=== PATIENT | female | born 1975 | race Caucasian/White ===

== ENCOUNTER 2016-08-02 14:37 | Outpatient (CLI) | payer BC, MEDICAID ==
[2015-09-19 16:23] VITALS: BP 108/72
[2016-08-02 14:59] LABS: APPEARANCE,URINE Clear (CLEAR); COLOR,URINE Amber (YELLOW); OCCULT BLOOD,URINE Negative (NEGATIVE); UROBILINOGEN URINE 0.2 Eu (0.2-1.0)
== END 2016-08-02 14:45 ==
LOC: LAB 14:37
PROVIDERS: ATTEND Internal Medicine Hematology & Oncology
DX: Z51.81 Encounter for therapeutic drug level monitoring (principal); Z79.01 Long term (current) use of anticoagulants; D68.61 Antiphospholipid syndrome
CPT/HCPCS: 36415; 81002; 85610

== ENCOUNTER 2016-08-26 13:44 | Outpatient (CLI) | payer BC, MEDICAID ==
[2015-09-19 16:23] VITALS: BP 108/72
== END 2016-08-26 13:45 ==
LOC: LAB 13:44
PROVIDERS: ATTEND Internal Medicine Hematology & Oncology
DX: D68.51 Activated protein C resistance (principal)
CPT/HCPCS: 36415; 85610

== ENCOUNTER 2016-10-15 10:53 | Emergency (ER) | payer BC, MEDICAID ==
--- NOTE | 2016-10-15 11:26 | ED Physician Documentation ---
General Adult - HISTORIAN Historian: patient - HPI Stated Complaint: Fever, Headaches, Neck Pain Chief Complaint: Fever Additional Information: 41 y/o F presents with acute illness. Starting Friday patient and her daughter both had 'high fevers' (102.9 by oral thermometer) , HAs, and general malaise. Yesterday, felt like the back of her neck was more painful. She's also diaphoretic and felt like her lymph nodes were enlarged. Also has fullness in ears and sinuses. Feels dizzy because of ear fullness. She has taken Vicodin but has not relieved headache. Tolerating some limited po but has decreased food intake. Has been vomiting with increase from baseline, nonbilious and non bloody. Denies diarrhea or rash. Compares her illness to when she had mono. Did not get a flu shot this year. Dad has walking pneumonia. Patient has a port for gastroparesis. - ROS CONST: fever, sweating, recent illness - PAST HX Past History: other (Hypothyroidism, FMS, IBS, B12 deficiency, HTN, Gastroparesis ) Allergies/Adverse Reactions: Allergies Allergy/AdvReac Type Severity Reaction Status Date / Time Iodinated Contrast Media - Allergy Verified 10/15/16 11:15 IV Dye Penicillins Allergy Verified 10/15/16 11:15 sulfamethoxazole Allergy Verified 10/15/16 11:15 [From Bactrim DS] trimethoprim Allergy Verified 10/15/16 11:15 [From Bactrim DS] Home Medications: Ambulatory Orders Medication Instructions Recorded Butalb/Acetaminophen/Caffeine 1 tab PO DAILY 11/26/12 [[id number] 50-325-40] Ondansetron HCl 4 mg PO Q6H PRN 11/26/12 Warfarin Sodium [Coumadin] 6 mg PO DAILY 11/26/12 LORazepam [Ativan] 0.5 mg PO BID #0 04/06/14 Metoprolol Succinate 50 mg PO DAILY #0 04/06/14 Chlordiazepoxide/Clidinium Br 1 each PO 2 tabs QID av 12/14/15 [Librax Capsule] Hydrocodone/Acetaminophen [Vicodin 1 each PO PRN u2 12/14/15 Es 7.5-300 Mg Tablet] - SOCIAL HX Smoking History: other (2 cigarettes/day) Alcohol Use: none Drug Use: none - FAMILY HX Family History: No - VITAL SIGNS Vital Signs: Vital Signs Temp Pulse Resp BP Pulse Ox 98.7 F 107 H 20 153/88 99 10/15/16 10:55 10/15/16 10:55 10/15/16 10:55 10/15/16 10:55 10/15/16 10:55 Progress - Results/Orders Results/Orders: 12:10 Orthostatics were positive and patient was reporting increase in nausea. Started 1 L NS bolus and gave Zofran. - Progress Progress: 12:45 Labs returned as normal and Influenza negative. Patient feeling better with NS and Zofran. 13:38 Patient states that she is still nauseated some but feeling better then on admission. General Adult Physical Exam - PHYSICAL EXAM GENERAL APPEARANCE: no distress EENT: eye inspection normal, TM's nml. No: hearing deficit NECK: normal inspection, thyroid normal. No: lymphadenopathy, stiff neck RESPIRATORY: no resp distress, chest non-tender, breath sounds normal CVS: heart sounds normal, tachycardia ABDOMEN: soft, normal bowel sounds SKIN: warm/dry NEURO: oriented X3, sensation nml Discharge Clincal Impression: Viral syndrome, Gastroparesis Referrals: Adriel Alberts MD [Primary Care Provider] - 2 Days Additional Instructions: Small frequent meals - clear liquids until vomiting has improved. If any further problems, contact PCP or return to ED. Home Medications: Ambulatory Orders Butalb/Acetaminophen/Caffeine [Ldbmkj-Zgpcyylz-Zmmg 50-325-40] 1 tab PO DAILY Ondansetron HCl 4 mg PO Q6H PRN 11/26/12 Warfarin Sodium [Coumadin] 6 mg PO DAILY 11/26/12 LORazepam [Ativan] 0.5 mg PO BID #0 04/06/14 Metoprolol Succinate 50 mg PO DAILY #0 04/06/14 Chlordiazepoxide/Clidinium Br [Librax Capsule] 1 each PO 2 tabs QID av Hydrocodone/Acetaminophen [Vicodin Es 7.5-300 Mg Tablet] 1 each PO PRN u2 12/13 Condition: Stable Decision to Admit: NO Date of Decison to Admit: 10/15/16 Decision Time: 13:34
[2016-10-15 12:06] LABS: BASOPHILS % 0.5 (0.0-1.5); EOSINOPHILS % 1.7 % (0.0-6.8); MONOCYTES # 0.4 # k/uL (0.0-0.9); MONOCYTES % 5.5 % (0.0-11.0); NEUTROPHILS # 4.8 # k/uL (1.4-7.7)
[2016-10-15] MEDS ORDERED: ONDANSETRON HCL/PF 4 MG/ 2ML VIAL ONE (12:08)
[2016-10-15] MEDS ORDERED: 0.9 % SODIUM CHLORIDE 1,000 ML IV ONE (12:08)
[2016-10-15] MEDS: 0.9 % SODIUM CHLORIDE 1,000 ML IV SCH (12:10)
[2016-10-15] MEDS: ONDANSETRON HCL/PF 4 MG/ 2ML VIAL IVP ONE ×2 (12:10→13:45)
[2016-10-15 12:31] LABS: eGFR (African) > 60; eGFR (Non-African) > 60
[2016-10-15 13:55] VITALS: BP 130/68
== END 2016-10-15 13:52 ==
LOC: ED 10:53
DX: K31.84 Gastroparesis (principal)
CPT/HCPCS: 80053; 85025; 85610; 87400; J2405; J7030; 96361; 96374; 99283

== ENCOUNTER 2016-12-18 15:08 | Outpatient (CLI) | payer BC ==
[~2016-12-18 15:08] MED LIST: 0.9 % SODIUM CHLORIDE 50 ML IV.SOLN IV ONE; HEPARIN SODIUM 500 UNIT/5 ML DISP.SYRIN IV ONE; ONDANSETRON HCL/PF 4 MG/ 2ML VIAL ONE; SALINE FLUSH 10 ML DISP.SYRIN IVF ONE; cefTRIAXone SODIUM 1 GM VIAL ONE
[2016-12-18] MEDS ORDERED: ONDANSETRON HCL/PF 4 MG/ 2ML VIAL IVP ONE (16:00)
[2016-12-19] MEDS ORDERED: cefTRIAXone SODIUM 1 GM in 0.9 % SODIUM CHLORIDE 50 ML IV SCH (09:00)
== END 2016-12-18 15:10 ==
LOC: INF 15:08
PROVIDERS: ATTEND Family Medicine
DX: J40 Bronchitis, not specified as acute or chronic (principal); J01.90 Acute sinusitis, unspecified; D68.51 Activated protein C resistance
CPT/HCPCS: 36415; 85610; J0696; J1642; J2405; 96365

== ENCOUNTER 2016-12-19 13:26 | Outpatient (CLI) | payer BC, MEDICAID ==
[2016-12-19] MEDS ORDERED: ONDANSETRON HCL/PF 4 MG/ 2ML VIAL ONE (13:30)
[2016-12-19] MEDS ORDERED: 0.9 % SODIUM CHLORIDE 50 ML IV.SOLN IV ONE (13:30)
[2016-12-19] MEDS ORDERED: cefTRIAXone SODIUM 1 GM VIAL ONE (13:30)
[2016-12-19] MEDS ORDERED: HEPARIN SODIUM 500 UNIT/5 ML DISP.SYRIN IV ONE (13:30)
[2016-12-19] MEDS ORDERED: SALINE FLUSH 10 ML DISP.SYRIN IVF ONE (13:30)
[2016-12-19 14:05] LABS: BASOPHILS % 0.7 (0.0-1.5); EOSINOPHILS % 2.6 % (0.0-6.8); MEAN CORPUSCULAR HEMOGLOBIN 33.5 pg (28.0-34.0); MEAN CORPUSCULAR VOLUME 90.5 fl (80.0-100.0); MONOCYTES % 3.6 % (0.0-11.0); NEUTROPHILS # 7.2 # k/uL (1.4-7.7)
[2016-12-19 14:49] LABS: eGFR (African) > 60; eGFR (Non-African) > 60
[2016-12-20 01:41] LABS: VITAMIN D, 25-HYDROXY <5 ng/mL (30-100)
== END 2016-12-19 13:27 ==
LOC: INF 13:26
PROVIDERS: ATTEND Family Medicine
DX: J40 Bronchitis, not specified as acute or chronic (principal); J01.90 Acute sinusitis, unspecified; D68.51 Activated protein C resistance
CPT/HCPCS: 80053; 82306; 82607; 82728; 83615; 83921; 84443; 85025; J0696; J1642; J2405; 96365

== ENCOUNTER 2016-12-20 13:05 | Outpatient (CLI) | payer BC, MEDICAID ==
[~2016-12-20 13:05] MED LIST changes: +ONDANSETRON HCL/PF 4 MG/ 2ML VIAL IVP ONE; +cefTRIAXone SODIUM 1 GM in 0.9 % SODIUM CHLORIDE 50 ML IV SCH
== END 2016-12-20 13:06 ==
LOC: INF 13:05
PROVIDERS: ATTEND Family Medicine
DX: J40 Bronchitis, not specified as acute or chronic (principal); J01.90 Acute sinusitis, unspecified; D68.51 Activated protein C resistance
CPT/HCPCS: J0696; J1642; J2405; 96365

== ENCOUNTER 2016-12-21 13:54 | Outpatient (CLI) | payer BC, MEDICAID ==
[~2016-12-21 13:54] MED LIST changes: -ONDANSETRON HCL/PF 4 MG/ 2ML VIAL IVP ONE; +ONDANSETRON HCL/PF 4 MG/ 2ML VIAL IVP SCH
== END 2016-12-21 13:55 ==
LOC: INF 13:54
PROVIDERS: ATTEND Family Medicine
DX: J40 Bronchitis, not specified as acute or chronic (principal); J01.90 Acute sinusitis, unspecified; D68.51 Activated protein C resistance
CPT/HCPCS: J0696; J1642; J2405; 96365

== ENCOUNTER 2016-12-22 14:24 | Outpatient (CLI) | payer BC, MEDICAID | END 2016-12-22 14:25 | LOC: INF 14:24 | PROVIDERS: ATTEND Family Medicine | DX: J40 Bronchitis, not specified as acute or chronic (principal); J01.90 Acute sinusitis, unspecified; D68.51 Activated protein C resistance | CPT/HCPCS: J0696; J1642; J2405; 96365 ==

== ENCOUNTER 2016-12-30 11:30 | Outpatient (CLI) | payer BC, MEDICAID | END 2016-12-30 11:32 | LOC: LAB 11:30 | PROVIDERS: ATTEND Internal Medicine Hematology & Oncology | DX: D68.51 Activated protein C resistance (principal) | CPT/HCPCS: 36415; 85610 ==

== ENCOUNTER 2017-04-28 11:39 | Outpatient (CLI) | payer BC, OTHER ==
[2017-04-28 12:12] LABS: APPEARANCE,URINE Cloudy (CLEAR); COLOR,URINE Yellow (YELLOW); OCCULT BLOOD,URINE 1+ (NEGATIVE); UROBILINOGEN URINE 0.2 Eu (0.2-1.0)
[2017-04-28 12:19] LABS: AMORPHOUS SEDIMENT,UR FEW (NEGATIVE)
== END 2017-04-28 11:40 ==
LOC: LAB 11:39
PROVIDERS: ATTEND Family Medicine
DX: R30.0 Dysuria (principal)
CPT/HCPCS: 81002; 87086

== ENCOUNTER 2017-04-30 13:15 | Outpatient (CLI) | payer BC, OTHER ==
[2017-04-30] MEDS ORDERED: cefTRIAXone SODIUM 1 GM VIAL ONE (14:00)
[2017-04-30] MEDS ORDERED: SALINE FLUSH 10 ML DISP.SYRIN IVF ONE (14:00)
[2017-04-30] MEDS ORDERED: HEPARIN SODIUM 500 UNIT/5 ML DISP.SYRIN IV ONE (14:00)
[2017-04-30] MEDS ORDERED: 0.9 % SODIUM CHLORIDE 50 ML IV.SOLN IV ONE (14:00)
[2017-04-30] MEDS ORDERED: ONDANSETRON HCL/PF 4 MG/ 2ML VIAL ONE (14:00)
[2017-05-01] MEDS ORDERED: cefTRIAXone SODIUM 1 GM in 0.9 % SODIUM CHLORIDE 50 ML IV SCH (09:00)
[2017-05-01] MEDS ORDERED: SALINE FLUSH 10 ML DISP.SYRIN IVF ONE (12:31)
[2017-05-01] MEDS ORDERED: ONDANSETRON HCL/PF 4 MG/ 2ML VIAL ONE (12:31)
== END 2017-04-30 13:16 ==
LOC: INF 13:15
PROVIDERS: ATTEND Family Medicine
DX: N39.0 Urinary tract infection, site not specified (principal); K31.84 Gastroparesis
CPT/HCPCS: 96366; 96367; 96374; J0696; J1642; J2405; 96376

== ENCOUNTER 2017-05-01 12:58 | Outpatient (CLI) | payer BC, OTHER ==
[2017-05-01] MEDS ORDERED: HEPARIN SODIUM 500 UNIT/5 ML DISP.SYRIN IV ONE (13:00)
[2017-05-01] MEDS ORDERED: cefTRIAXone SODIUM 1 GM VIAL ONE (13:00)
[2017-05-01] MEDS ORDERED: SALINE FLUSH 10 ML DISP.SYRIN IVF ONE (13:00)
[2017-05-01] MEDS ORDERED: ONDANSETRON HCL/PF 4 MG/ 2ML VIAL ONE (13:00)
[2017-05-01] MEDS ORDERED: 0.9 % SODIUM CHLORIDE 50 ML IV.SOLN IV ONE (13:00)
[2017-05-02] MEDS ORDERED: ONDANSETRON HCL/PF 4 MG/ 2ML VIAL ONE (08:36)
[2017-05-02] MEDS ORDERED: SALINE FLUSH 10 ML DISP.SYRIN IVF ONE (08:38)
== END 2017-05-01 13:00 ==
LOC: INF 12:58
PROVIDERS: ATTEND Family Medicine
DX: N39.0 Urinary tract infection, site not specified (principal); K31.84 Gastroparesis
CPT/HCPCS: 96366; 96367; 96374; J0696; J1642; J2405; 96376

== ENCOUNTER 2017-05-02 12:11 | Outpatient (CLI) | payer BC, OTHER ==
[~2017-05-02 12:11] MED LIST changes: -0.9 % SODIUM CHLORIDE 50 ML IV.SOLN IV ONE; -HEPARIN SODIUM 500 UNIT/5 ML DISP.SYRIN IV ONE; -ONDANSETRON HCL/PF 4 MG/ 2ML VIAL IVP SCH; -ONDANSETRON HCL/PF 4 MG/ 2ML VIAL ONE; -SALINE FLUSH 10 ML DISP.SYRIN IVF ONE; -cefTRIAXone SODIUM 1 GM VIAL ONE
[2017-05-02] MEDS ORDERED: 0.9 % SODIUM CHLORIDE 50 ML IV.SOLN IV ONE (13:00)
[2017-05-02] MEDS ORDERED: HEPARIN SODIUM 500 UNIT/5 ML DISP.SYRIN IV ONE (13:00)
[2017-05-02] MEDS ORDERED: SALINE FLUSH 10 ML DISP.SYRIN IVF ONE (13:00)
[2017-05-02] MEDS ORDERED: ONDANSETRON HCL/PF 4 MG/ 2ML VIAL ONE (13:00)
[2017-05-02] MEDS ORDERED: cefTRIAXone SODIUM 1 GM VIAL ONE (13:00)
== END 2017-05-02 12:12 ==
LOC: INF 12:11
PROVIDERS: ATTEND Family Medicine
DX: N39.0 Urinary tract infection, site not specified (principal); K31.84 Gastroparesis; D68.51 Activated protein C resistance; J40 Bronchitis, not specified as acute or chronic; J01.90 Acute sinusitis, unspecified
CPT/HCPCS: 96366; 96367; 96374; J0696; J1642; J2405; 96376

== ENCOUNTER 2017-05-03 13:20 | Outpatient (CLI) | payer BC, OTHER ==
[~2017-05-03 13:20] MED LIST changes: +0.9 % SODIUM CHLORIDE 50 ML IV.SOLN IV ONE; +HEPARIN SODIUM 500 UNIT/5 ML DISP.SYRIN IV ONE; +ONDANSETRON HCL/PF 4 MG/ 2ML VIAL ONE; +SALINE FLUSH 10 ML DISP.SYRIN IVF ONE; +cefTRIAXone SODIUM 1 GM VIAL ONE; -cefTRIAXone SODIUM 1 GM in 0.9 % SODIUM CHLORIDE 50 ML IV SCH
== END 2017-05-03 13:21 ==
LOC: INF 13:20
PROVIDERS: ATTEND Family Medicine
DX: N39.0 Urinary tract infection, site not specified (principal); K31.84 Gastroparesis
CPT/HCPCS: 96366; 96367; 96374; J0696; J1642; J2405; 96376

== ENCOUNTER 2017-05-04 13:03 | Outpatient (CLI) | payer BC, OTHER | END 2017-05-04 13:04 | LOC: INF 13:03 | PROVIDERS: ATTEND Family Medicine | DX: N39.0 Urinary tract infection, site not specified (principal); K31.84 Gastroparesis | CPT/HCPCS: 96366; 96367; 96374; J0696; J1642; J2405; 96376 ==

== ENCOUNTER 2017-05-05 12:22 | Outpatient (CLI) | payer BC, OTHER ==
[2017-05-05] MEDS ORDERED: HEPARIN SODIUM 500 UNIT/5 ML DISP.SYRIN IV ONE (13:00)
[2017-05-05] MEDS ORDERED: SALINE FLUSH 10 ML DISP.SYRIN IVF ONE (13:00)
[2017-05-05] MEDS ORDERED: 0.9 % SODIUM CHLORIDE 50 ML IV.SOLN IV ONE (13:00)
[2017-05-05] MEDS ORDERED: ONDANSETRON HCL/PF 4 MG/ 2ML VIAL ONE (13:00)
[2017-05-05] MEDS ORDERED: cefTRIAXone SODIUM 1 GM VIAL ONE (13:00)
[2017-05-06] MEDS ORDERED: cefTRIAXone SODIUM 1 GM in 0.9 % SODIUM CHLORIDE 50 ML IV SCH (09:00)
== END 2017-05-05 12:23 ==
LOC: INF 12:22
PROVIDERS: ATTEND Family Medicine
DX: N39.0 Urinary tract infection, site not specified (principal); K31.84 Gastroparesis
CPT/HCPCS: 96366; 96367; 96374; J0696; J1642; J2405; 96376

== ENCOUNTER 2017-05-06 12:01 | Outpatient (CLI) | payer BC, OTHER ==
[~2017-05-06 12:01] MED LIST changes: -0.9 % SODIUM CHLORIDE 50 ML IV.SOLN IV ONE; -HEPARIN SODIUM 500 UNIT/5 ML DISP.SYRIN IV ONE; -cefTRIAXone SODIUM 1 GM VIAL ONE; +cefTRIAXone SODIUM 1 GM in 0.9 % SODIUM CHLORIDE 50 ML IV SCH
[2017-05-06] MEDS ORDERED: 0.9 % SODIUM CHLORIDE 50 ML IV.SOLN IV ONE (13:00)
[2017-05-06] MEDS ORDERED: cefTRIAXone SODIUM 1 GM VIAL ONE (13:00)
[2017-05-06] MEDS ORDERED: ONDANSETRON HCL/PF 4 MG/ 2ML VIAL ONE (13:00)
[2017-05-06] MEDS ORDERED: HEPARIN SODIUM 500 UNIT/5 ML DISP.SYRIN IV ONE (13:00)
[2017-05-06] MEDS ORDERED: SALINE FLUSH 10 ML DISP.SYRIN IVF ONE (13:00)
== END 2017-05-06 12:02 ==
LOC: INF 12:01
PROVIDERS: ATTEND Family Medicine
DX: N39.0 Urinary tract infection, site not specified (principal); K31.84 Gastroparesis
CPT/HCPCS: 96366; 96367; 96374; J0696; J1642; J2405; 96376

== ENCOUNTER 2017-05-21 13:48 | Outpatient (CLI) | payer BC, OTHER ==
[2017-05-21 14:14] LABS: APPEARANCE,URINE Cloudy (CLEAR); COLOR,URINE Yellow (YELLOW); OCCULT BLOOD,URINE 2+ (NEGATIVE); PH URINE 5.5 (5.0 - 8.0); UROBILINOGEN URINE 0.2 Eu (0.2-1.0)
[2017-05-23] MEDS ORDERED: SALINE FLUSH 10 ML DISP.SYRIN IVF ONE (08:02)
[2017-05-23] MEDS ORDERED: ONDANSETRON HCL/PF 4 MG/ 2ML VIAL ONE (08:06)
== END 2017-05-21 13:50 ==
LOC: LAB 13:48
PROVIDERS: ATTEND Internal Medicine Hematology & Oncology
DX: D68.51 Activated protein C resistance (principal)
CPT/HCPCS: 36415; 81002; 85610; 87086; 87186

== ENCOUNTER 2017-05-22 13:00 | Outpatient (CLI) | payer BC, OTHER ==
[~2017-05-22 13:00] MED LIST changes: +0.9 % SODIUM CHLORIDE 50 ML IV.SOLN IV ONE; -ONDANSETRON HCL/PF 4 MG/ 2ML VIAL ONE; +cefTRIAXone SODIUM 1 GM VIAL ONE
== END 2017-05-22 13:02 ==
LOC: INF 13:00
PROVIDERS: ATTEND Family Medicine
DX: N39.0 Urinary tract infection, site not specified (principal)
CPT/HCPCS: 96366; 96367; 96374; J0696; 96376; S1016

== ENCOUNTER 2017-05-23 10:12 | Outpatient (CLI) | payer BC, OTHER ==
[~2017-05-23 10:12] MED LIST changes: -0.9 % SODIUM CHLORIDE 50 ML IV.SOLN IV ONE; +ONDANSETRON HCL/PF 4 MG/ 2ML VIAL ONE; -SALINE FLUSH 10 ML DISP.SYRIN IVF ONE; -cefTRIAXone SODIUM 1 GM VIAL ONE; -cefTRIAXone SODIUM 1 GM in 0.9 % SODIUM CHLORIDE 50 ML IV SCH
[2017-05-23] MEDS ORDERED: ONDANSETRON HCL/PF 4 MG/ 2ML VIAL ONE (10:30)
[2017-05-23] MEDS ORDERED: HEPARIN SODIUM 500 UNIT/5 ML DISP.SYRIN IV ONE (10:30)
[2017-05-23] MEDS ORDERED: cefTRIAXone SODIUM 1 GM VIAL ONE (10:30)
[2017-05-23] MEDS ORDERED: 0.9 % SODIUM CHLORIDE 50 ML IV.SOLN IV ONE (10:30)
[2017-05-23] MEDS ORDERED: SALINE FLUSH 10 ML DISP.SYRIN IVF ONE (10:30)
== END 2017-05-23 10:30 ==
LOC: INF 10:12
PROVIDERS: ATTEND Family Medicine
DX: N39.0 Urinary tract infection, site not specified (principal)
CPT/HCPCS: 96366; 96367; 96374; J0696; J1642; J2405; 96376

== ENCOUNTER 2017-05-24 13:44 | Outpatient (CLI) | payer BC, OTHER ==
[~2017-05-24 13:44] MED LIST changes: +0.9 % SODIUM CHLORIDE PF 10 ML VIAL IJ SCH; +HEPARIN SODIUM 500 UNIT/5 ML DISP.SYRIN IV SCH; -ONDANSETRON HCL/PF 4 MG/ 2ML VIAL ONE; +cefTRIAXone SODIUM 1 GM in 0.9 % SODIUM CHLORIDE 50 ML IV SCH
[2017-05-24] MEDS ORDERED: ONDANSETRON HCL/PF 4 MG/ 2ML VIAL ONE ×2 (13:57→14:00)
[2017-05-24] MEDS ORDERED: SALINE FLUSH 10 ML DISP.SYRIN IVF ONE ×2 (13:58→14:00)
[2017-05-24] MEDS ORDERED: 0.9 % SODIUM CHLORIDE 50 ML IV.SOLN IV ONE (14:00)
[2017-05-24] MEDS ORDERED: HEPARIN SODIUM 500 UNIT/5 ML DISP.SYRIN IV ONE (14:00)
[2017-05-24] MEDS ORDERED: cefTRIAXone SODIUM 1 GM VIAL ONE (14:00)
== END 2017-05-24 13:45 ==
LOC: INF 13:44
PROVIDERS: ATTEND Family Medicine
DX: N39.0 Urinary tract infection, site not specified (principal)
CPT/HCPCS: 96366; 96367; 96374; J0696; J1642; J2405; 96376

== ENCOUNTER 2017-05-25 13:50 | Outpatient (CLI) | payer BC, OTHER ==
[2017-05-25] MEDS ORDERED: cefTRIAXone SODIUM 1 GM VIAL ONE (14:00)
[2017-05-25] MEDS ORDERED: ONDANSETRON HCL/PF 4 MG/ 2ML VIAL ONE (14:00)
[2017-05-25] MEDS ORDERED: HEPARIN SODIUM 500 UNIT/5 ML DISP.SYRIN IV ONE (14:00)
[2017-05-25] MEDS ORDERED: SALINE FLUSH 10 ML DISP.SYRIN IVF ONE (14:00)
[2017-05-25] MEDS ORDERED: 0.9 % SODIUM CHLORIDE 50 ML IV.SOLN IV ONE (14:00)
[2017-05-26] MEDS ORDERED: SALINE FLUSH 10 ML DISP.SYRIN IVF ONE (07:46)
[2017-05-26] MEDS ORDERED: ONDANSETRON HCL/PF 4 MG/ 2ML VIAL ONE (07:47)
== END 2017-05-25 13:52 ==
LOC: INF 13:50
PROVIDERS: ATTEND Family Medicine
DX: N39.0 Urinary tract infection, site not specified (principal)
CPT/HCPCS: 96366; 96367; 96374; J0696; J1642; J2405; 96376

== ENCOUNTER 2017-05-26 11:27 | Outpatient (CLI) | payer BC, OTHER ==
[~2017-05-26 11:27] MED LIST changes: -0.9 % SODIUM CHLORIDE PF 10 ML VIAL IJ SCH; -HEPARIN SODIUM 500 UNIT/5 ML DISP.SYRIN IV SCH; +HEPARIN SODIUM,PORCINE 30 UNITS INJ IV ONE; +ONDANSETRON HCL/PF 4 MG/ 2ML VIAL ONE; +SALINE FLUSH 10 ML DISP.SYRIN IVF ONE; -cefTRIAXone SODIUM 1 GM in 0.9 % SODIUM CHLORIDE 50 ML IV SCH
[2017-05-26] MEDS ORDERED: cefTRIAXone SODIUM 1 GM in 0.9 % SODIUM CHLORIDE 50 ML IV SCH (12:00)
[2017-05-26] MEDS ORDERED: SALINE FLUSH 10 ML DISP.SYRIN IVF ONE (12:00)
[2017-05-26] MEDS ORDERED: cefTRIAXone SODIUM 1 GM VIAL ONE (12:00)
[2017-05-26] MEDS ORDERED: ONDANSETRON HCL/PF 4 MG/ 2ML VIAL ONE (12:00)
[2017-05-26] MEDS ORDERED: HEPARIN SODIUM 500 UNIT/5 ML DISP.SYRIN IV ONE (12:00)
[2017-05-26] MEDS ORDERED: 0.9 % SODIUM CHLORIDE 50 ML IV.SOLN IV ONE (12:00)
[2017-05-27] MEDS ORDERED: SALINE FLUSH 10 ML DISP.SYRIN IVF ONE (08:10)
[2017-05-27] MEDS ORDERED: ONDANSETRON HCL/PF 4 MG/ 2ML VIAL ONE (08:10)
[2017-05-28] MEDS ORDERED: ONDANSETRON HCL/PF 4 MG/ 2ML VIAL ONE (07:22)
[2017-05-28] MEDS ORDERED: SALINE FLUSH 10 ML DISP.SYRIN IVF ONE (07:22)
== END 2017-05-26 11:30 ==
LOC: INF 11:27
PROVIDERS: ATTEND Family Medicine
DX: N39.0 Urinary tract infection, site not specified (principal)
CPT/HCPCS: J0696; J1642; J2405; 96366; 96374; 96376

== ENCOUNTER 2017-05-27 10:39 | Outpatient (CLI) | payer BC, OTHER ==
[2017-05-27] MEDS ORDERED: HEPARIN SODIUM 500 UNIT/5 ML DISP.SYRIN IV ONE (12:00)
[2017-05-27] MEDS ORDERED: SALINE FLUSH 10 ML DISP.SYRIN IVF ONE (12:00)
[2017-05-27] MEDS ORDERED: cefTRIAXone SODIUM 1 GM VIAL ONE (12:00)
[2017-05-27] MEDS ORDERED: 0.9 % SODIUM CHLORIDE 50 ML IV.SOLN IV ONE (12:00)
[2017-05-27] MEDS ORDERED: ONDANSETRON HCL/PF 4 MG/ 2ML VIAL ONE (12:00)
== END 2017-05-27 10:40 ==
LOC: INF 10:39
PROVIDERS: ATTEND Family Medicine
DX: N39.0 Urinary tract infection, site not specified (principal)
CPT/HCPCS: J0696; J1642; J2405; 96365; 96374; 96376

== ENCOUNTER 2017-05-28 12:00 | Outpatient (CLI) | payer BC, OTHER ==
[~2017-05-28 12:00] MED LIST changes: +0.9 % SODIUM CHLORIDE 50 ML IV.SOLN IV ONE; +HEPARIN SODIUM 500 UNIT/5 ML DISP.SYRIN IV ONE; -HEPARIN SODIUM,PORCINE 30 UNITS INJ IV ONE; +cefTRIAXone SODIUM 1 GM VIAL ONE
== END 2017-05-28 12:02 ==
LOC: INF 12:00
PROVIDERS: ATTEND Family Medicine
DX: N39.0 Urinary tract infection, site not specified (principal)
CPT/HCPCS: J0696; J1642; J2405; 96365; 96374; 96376

== ENCOUNTER 2017-07-03 06:56 | Day surgery (SDC) | payer BC, OTHER ==
[2017-07-03] MEDS ORDERED: PROPOFOL 500 MG/50 ML VIAL IV ONE (08:00)
[2017-07-03] MEDS ORDERED: LIDOCAINE 1%/EPINEPHRINE 20ML VIAL IJ ONE (08:00)
[2017-07-03] MEDS ORDERED: LACTATED RINGERS 1,000 ML IV.SOLN IV ONE (08:00)
[2017-07-03] MEDS ORDERED: ONDANSETRON HCL/PF 4 MG/ 2ML VIAL ONE (08:00)
[2017-07-03] MEDS ORDERED: SALINE FLUSH 10 ML DISP.SYRIN IVF ONE (08:00)
[2017-07-03] MEDS ORDERED: BUPIVACAINE HCL/PF 2.5 MG/ML 10ML VIAL IV ONE (08:00)
[2017-07-03] MEDS ORDERED: LIDOCAINE HCL/PF 2% 100 MG/5 ML VIAL IJ ONE (08:00)
--- NOTE | 2017-07-03 13:58 | Operative Note ---
SURGEON: Júnior Pruett MD ANESTHESIA: MAC anesthesia with local. ESTIMATED BLOOD LOSS: None. COMPLICATIONS: None. PREOPERATIVE DIAGNOSIS: Mediport malfunction. POSTOPERATIVE DIAGNOSIS: Mediport malfunction. PROCEDURE PERFORMED: Revision of Mediport. INDICATIONS FOR THE PROCEDURE: This is a 42-year-old woman with a Port-A-Cath that has been in place for years. It has been flipping over and not able to be accessed. It functions well otherwise. She is now brought to the operating room to try to reposition and tack the port. DESCRIPTION OF PROCEDURE: Patient was brought to the operating room and MAC anesthesia was administered by the program writer. The left upper chest was prepped and draped. Local anesthesia was injected in the old incision. A small incision was made and carried down through the subcutaneous tissues. The port was seen. It was in position but not tacked down. It was tacked down with a 3-0 nylon suture. There were no other abnormalities. There is no evidence of infection. The skin was closed with running 3-0 Vicryl sutures. A Steri-Strip dressing was placed over the incision. The patient was taken to the recovery room in good condition. FINDINGS: Port was in the right position but it was not tacked down to the chest wall. cc: Dr. Adriel CORRIGAN
== END 2017-07-03 06:57 ==
LOC: OPSURG 06:56
PROVIDERS: ATTEND Colon & Rectal Surgery
DX: T82.598A Other mechanical complication of other cardiac and vascular devices and implants, initial encounter (principal); X58.XXXA Exposure to other specified factors, initial encounter
CPT/HCPCS: 36415; 85610; J2001; J2405; J2704; J3490; J7030; J7120; 36576; 36582; S1016

== ENCOUNTER 2017-07-08 11:53 | Outpatient (CLI) | payer BC, OTHER | END 2017-07-08 11:58 | LOC: LAB 11:53 | PROVIDERS: ATTEND Internal Medicine Hematology & Oncology | DX: D68.51 Activated protein C resistance (principal) | CPT/HCPCS: 36415; 85610 ==

== ENCOUNTER 2017-07-11 12:02 | Outpatient (CLI) | payer BC, OTHER | END 2017-07-11 12:05 | LOC: LAB 12:02 | PROVIDERS: ATTEND Internal Medicine Hematology & Oncology | DX: D68.51 Activated protein C resistance (principal) | CPT/HCPCS: 36415; 85610 ==

== ENCOUNTER 2017-09-22 10:51 | Outpatient (CLI) | payer OTHER | END 2017-09-22 10:52 | LOC: LAB 10:51 | PROVIDERS: ATTEND Internal Medicine Hematology & Oncology | DX: D68.51 Activated protein C resistance (principal) | CPT/HCPCS: 36415; 85610 ==

== ENCOUNTER 2017-10-06 15:46 | Outpatient (CLI) | payer BC, MEDICAID ==
[2017-10-06 15:54] LABS: APPEARANCE,URINE Cloudy (CLEAR); COLOR,URINE Yellow (YELLOW); OCCULT BLOOD,URINE Trace-intact (NEGATIVE); UROBILINOGEN URINE 0.2 Eu (0.2-1.0)
== END 2017-10-06 16:00 ==
LOC: LAB 15:46
PROVIDERS: ATTEND Family Medicine
DX: N39.0 Urinary tract infection, site not specified (principal)
CPT/HCPCS: 81002; 87086

== ENCOUNTER 2017-10-09 17:29 | Outpatient (CLI) | payer OTHER ==
[~2017-10-09 17:29] MED LIST changes: -0.9 % SODIUM CHLORIDE 50 ML IV.SOLN IV ONE; -HEPARIN SODIUM 500 UNIT/5 ML DISP.SYRIN IV ONE; -SALINE FLUSH 10 ML DISP.SYRIN IVF ONE
[2017-10-09] MEDS ORDERED: SALINE FLUSH 10 ML DISP.SYRIN IVF ONE (17:30)
[2017-10-09] MEDS ORDERED: 0.9 % SODIUM CHLORIDE 100 ML IV.SOLN IV ONE (17:30)
[2017-10-09] MEDS ORDERED: HEPARIN SODIUM 500 UNIT/5 ML DISP.SYRIN IV ONE (17:30)
[2017-10-09] MEDS ORDERED: cefTRIAXone SODIUM 1 GM VIAL ONE (17:30)
[2017-10-09] MEDS ORDERED: ONDANSETRON HCL/PF 4 MG/ 2ML VIAL ONE (17:30)
[2017-10-10] MEDS ORDERED: cefTRIAXone SODIUM 1 GM in 0.9 % SODIUM CHLORIDE 100 ML IV SCH (11:00)
== END 2017-10-09 18:30 | disposition home or self-care (01) ==
LOC: INF 17:29
PROVIDERS: ATTEND Family Medicine
DX: N39.0 Urinary tract infection, site not specified (principal)
CPT/HCPCS: 96365; 96375; J1642; J2405; J0696

== ENCOUNTER 2017-10-10 11:20 | Outpatient (CLI) | payer OTHER ==
[2017-10-10] MEDS ORDERED: ONDANSETRON HCL/PF 4 MG/ 2ML VIAL ONE ×2 (11:27→11:30)
[2017-10-10] MEDS ORDERED: cefTRIAXone SODIUM 1 GM VIAL ONE (11:30)
[2017-10-10] MEDS ORDERED: SALINE FLUSH 10 ML DISP.SYRIN IVF ONE (11:30)
[2017-10-10] MEDS ORDERED: HEPARIN SODIUM 500 UNIT/5 ML DISP.SYRIN IV ONE (11:30)
[2017-10-10] MEDS ORDERED: 0.9 % SODIUM CHLORIDE 100 ML IV.SOLN IV ONE (11:30)
== END 2017-10-10 11:30 ==
LOC: INF 11:20
PROVIDERS: ATTEND Family Medicine
DX: N39.0 Urinary tract infection, site not specified (principal)
CPT/HCPCS: 96365; 96375; J0696; J1642; J2405

== ENCOUNTER 2017-10-11 13:13 | Outpatient (CLI) | payer OTHER ==
[2017-10-11] MEDS ORDERED: cefTRIAXone SODIUM 1 GM VIAL ONE (13:30)
[2017-10-11] MEDS ORDERED: SALINE FLUSH 10 ML DISP.SYRIN IVF ONE (13:30)
[2017-10-11] MEDS ORDERED: ONDANSETRON HCL/PF 4 MG/ 2ML VIAL ONE (13:30)
[2017-10-11] MEDS ORDERED: HEPARIN SODIUM 500 UNIT/5 ML DISP.SYRIN IV ONE (13:30)
[2017-10-11] MEDS ORDERED: 0.9 % SODIUM CHLORIDE 100 ML IV.SOLN IV ONE (13:30)
== END 2017-10-11 14:00 ==
LOC: INF 13:13
PROVIDERS: ATTEND Family Medicine
DX: N39.0 Urinary tract infection, site not specified (principal)
CPT/HCPCS: 96365; 96375; J0696; J1642; J2405

== ENCOUNTER 2017-10-12 11:00 | Outpatient (CLI) | payer OTHER ==
[2017-10-12] MEDS ORDERED: cefTRIAXone SODIUM 1 GM VIAL ONE (13:15)
[2017-10-12] MEDS ORDERED: ONDANSETRON HCL/PF 4 MG/ 2ML VIAL ONE (13:15)
[2017-10-12] MEDS ORDERED: 0.9 % SODIUM CHLORIDE 100 ML IV.SOLN IV ONE (13:15)
[2017-10-12] MEDS ORDERED: SALINE FLUSH 10 ML DISP.SYRIN IVF ONE (13:15)
[2017-10-12] MEDS ORDERED: HEPARIN SODIUM 500 UNIT/5 ML DISP.SYRIN IV ONE (13:15)
== END 2017-10-12 14:20 | disposition home or self-care (01) ==
LOC: INF 11:00
PROVIDERS: ATTEND Family Medicine
DX: N39.0 Urinary tract infection, site not specified (principal)
CPT/HCPCS: 96365; 96375; J0696; J1642; J2405

== ENCOUNTER 2017-10-13 09:22 | Outpatient (CLI) | payer OTHER ==
[~2017-10-13 09:22] MED LIST changes: +0.9 % SODIUM CHLORIDE 250 ML IV ONE
[2017-10-13] MEDS ORDERED: ONDANSETRON HCL/PF 4 MG/ 2ML VIAL ONE ×2 (09:28→09:30)
[2017-10-13] MEDS ORDERED: HEPARIN SODIUM 500 UNIT/5 ML DISP.SYRIN IV ONE (09:30)
[2017-10-13] MEDS ORDERED: cefTRIAXone SODIUM 1 GM VIAL ONE (09:30)
[2017-10-13] MEDS ORDERED: SALINE FLUSH 10 ML DISP.SYRIN IVF ONE (09:30)
[2017-10-13] MEDS ORDERED: 0.9 % SODIUM CHLORIDE 100 ML IV.SOLN IV ONE (09:30)
== END 2017-10-13 09:23 ==
LOC: INF 09:22
PROVIDERS: ATTEND Family Medicine
DX: N39.0 Urinary tract infection, site not specified (principal)
CPT/HCPCS: 96365; 96375; J0696; J1642; J2405; J7050

== ENCOUNTER 2017-10-14 10:47 | Outpatient (CLI) | payer OTHER ==
[2017-10-14] MEDS ORDERED: SALINE FLUSH 10 ML DISP.SYRIN IVF ONE (11:00)
[2017-10-14] MEDS ORDERED: ONDANSETRON HCL/PF 4 MG/ 2ML VIAL ONE ×2 (11:00→11:07)
[2017-10-14] MEDS ORDERED: HEPARIN SODIUM 500 UNIT/5 ML DISP.SYRIN IV ONE (11:00)
[2017-10-14] MEDS ORDERED: 0.9 % SODIUM CHLORIDE 100 ML IV.SOLN IV ONE (11:00)
[2017-10-14] MEDS ORDERED: cefTRIAXone SODIUM 1 GM VIAL ONE (11:00)
== END 2017-10-14 10:50 ==
LOC: INF 10:47
PROVIDERS: ATTEND Family Medicine
DX: N39.0 Urinary tract infection, site not specified (principal)
CPT/HCPCS: 96365; 96375; J0696; J1642; J2405

== ENCOUNTER 2017-10-15 11:40 | Outpatient (CLI) | payer OTHER ==
[2017-10-15] MEDS ORDERED: SALINE FLUSH 10 ML DISP.SYRIN IVF ONE (11:44)
[2017-10-15] MEDS ORDERED: ONDANSETRON HCL/PF 4 MG/ 2ML VIAL ONE (11:44)
[2017-10-15] MEDS ORDERED: cefTRIAXone SODIUM 1 GM VIAL ONE (11:44)
[2017-10-15] MEDS ORDERED: 0.9 % SODIUM CHLORIDE 100 ML IV.SOLN IV ONE (11:44)
[2017-10-15] MEDS ORDERED: HEPARIN SODIUM 500 UNIT/5 ML DISP.SYRIN IV ONE (11:44)
== END 2017-10-15 11:42 ==
LOC: INF 11:40
PROVIDERS: ATTEND Family Medicine
DX: N39.0 Urinary tract infection, site not specified (principal)
CPT/HCPCS: J0696; J1642; J2405; 96365; 96375

== ENCOUNTER 2017-12-20 10:44 | Emergency (ER) | payer OTHER ==
[2017-12-20 11:23] LABS: BASOPHILS % 0.5 (0.0-1.5); EOSINOPHILS % 3.9 % (0.0-6.8); MEAN CORPUSCULAR HEMOGLOBIN 31.6 pg (28.0-34.0); MEAN CORPUSCULAR VOLUME 91.7 fl (80.0-100.0); MONOCYTES % 3.1 % (0.0-11.0); NEUTROPHILS # 5.4 # k/uL (1.4-7.7)
--- NOTE | 2017-12-20 11:24 | ED Physician Documentation ---
General Adult - HISTORIAN Historian: patient - HPI Stated Complaint: Pain with Urination Chief Complaint: General Adult Additional Information: 2 days dysuria and frequency. No fever. Has 4-5 UTI's per year. This would be 3rd for 2018. Wants IV abx, as she has gastroparesis and malabsorption. - ROS CONST: denies: fever - PAST HX Past History: other (above, plus Vit D deficiency with chronic pain. Factor V Leiden) Allergies/Adverse Reactions: Allergies Allergy/AdvReac Type Severity Reaction Status Date / Time benzoyl peroxide Allergy Verified 10/15/17 14:19 Iodinated Contrast- Oral and Allergy Verified 10/15/16 11:15 IV Dye Penicillins Allergy Verified 10/15/16 11:15 sulfamethoxazole Allergy Verified 10/15/16 11:15 [From Bactrim DS] trimethoprim Allergy Verified 10/15/16 11:15 [From Bactrim DS] Home Medications: Ambulatory Orders Medication Instructions Recorded Warfarin Sodium [Coumadin] 6 mg PO DAILY 11/26/12 Hydrocodone/Acetaminophen [Vicodin 1 each PO PRN PRN u2 12/14/15 Es 7.5-300 Mg Tablet] Hyoscyamine Sulfate [Levsin] 0.125 mg PO QID 10/15/17 LORazepam [Ativan] 0.5 mg PO BID PRN 10/15/17 Prochlorperazine Maleate 10 mg PO PRN PRN 10/15/17 [Compazine] Butalb/Acetaminophen/Caffeine 12/20/17 [Esgic] Levothyroxine Sodium [Synthroid] 25 mcg PO 0700 12/20/17 Tramadol HCl [Ultram] 12/20/17 - SOCIAL HX Smoking History: non-smoker - FAMILY HX Family History: No - VITAL SIGNS Vital Signs: Vital Signs Temp Pulse Resp BP Pulse Ox 97.8 F 98 H 18 136/79 99 12/20/17 10:45 12/20/17 10:45 12/20/17 10:45 12/20/17 10:45 12/20/17 10:45 - REVIEWED ASSESSMENTS Nursing Assessment Reviewed: Yes Vitals Reviewed: Yes ED Results Lab/Radiology - Orders Orders: ED Orders Category Date Time Status CBC/PLATELET/DIFF Routine Lab 12/20/17 11:12 Received CMP Routine Lab 12/20/17 11:12 Received PT-INR Routine Lab 12/20/17 11:12 Received URINALYSIS Routine Lab 12/20/17 Ordered URINE CULTURE Stat Lab 12/20/17 11:05 Ordered General Adult Physical Exam - PHYSICAL EXAM GENERAL APPEARANCE: no distress EENT: eye inspection normal, ENT inspection normal (external) NECK: normal inspection, supple RESPIRATORY: breath sounds normal CVS: reg rate & rhythm, heart sounds normal ABDOMEN: soft, normal bowel sounds, tenderness (diffuse, mild, lower abdomen) BACK: normal inspection, CVA tenderness (R) (mild, (but says always tender)) SKIN: warm/dry, normal color EXTREMITIES: normal range of motion (gait and stance), no evidence of injury NEURO: CN's nml as tested, motor nml, sensation nml, cognition normal Discharge Clincal Impression: UTI (urinary tract infection) Qualifiers: Urinary tract infection type: acute cystitis Hematuria presence: with hematuria Qualified Code(s): N30.01 - Acute cystitis with hematuria Referrals: Adriel Alberts MD [Primary Care Provider] - 2 Days Additional Instructions: Daily IV Rocephin as outpatient for 6 more days. Follow up with Dr. Alberts in the next 5-7 days. Decision to Admit: NO Decision Time: 12:15
[2017-12-20 11:36] LABS: eGFR (African) > 60; eGFR (Non-African) > 60
[2017-12-20] MEDS ORDERED: cefTRIAXone SODIUM ADVANTAGE 1 GM in NORMAL SALINE ADD-VANTAGE 50 ML IV ONE (11:46)
[2017-12-20] MEDS ORDERED: cefTRIAXone SODIUM 1 GM VIAL ONE (11:51)
[2017-12-20] MEDS ORDERED: HEPARIN SODIUM PORCINE IV ONE (12:18)
[2017-12-20] MEDS ORDERED: HEPARIN SODIUM 500 UNIT/5 ML DISP.SYRIN IV ONE (12:23)
[2017-12-20] MEDS ORDERED: ONDANSETRON HCL/PF 4 MG/ 2ML VIAL ONE (12:23)
[2017-12-20] MEDS ORDERED: ONDANSETRON HCL/PF 4 MG/ 2ML VIAL IVP ONE (12:30)
[2017-12-20 12:53] VITALS: BP 120/68
[2017-12-20 21:40] LABS: COLOR,URINE YELLOW (YELLOW)
[2017-12-20 21:41] LABS: APPEARANCE,URINE CLEAR (CLEAR); OCCULT BLOOD,URINE 3+ (NEGATIVE); PH URINE 5.5 (5.0 - 8.0); UROBILINOGEN URINE 0.2 Eu (0.2-1.0)
== END 2017-12-20 12:52 ==
LOC: ED 10:44
DX: N30.01 Acute cystitis with hematuria (principal)
CPT/HCPCS: 80053; 81002; 85025; 85610; 87086; J0696; J2405; 87186; 96365; 96374; 96375

== ENCOUNTER 2017-12-21 13:10 | Outpatient (CLI) | payer OTHER ==
[2017-12-20 12:53] VITALS: BP 120/68
[2017-12-21] MEDS ORDERED: cefTRIAXone SODIUM 1 GM VIAL ONE ×2 (13:21→14:00)
[2017-12-21] MEDS ORDERED: ONDANSETRON HCL/PF 4 MG/ 2ML VIAL ONE ×2 (13:21→14:00)
[2017-12-21] MEDS ORDERED: HEPARIN SODIUM 500 UNIT/5 ML DISP.SYRIN IV ONE ×2 (13:23→14:00)
[2017-12-21] MEDS ORDERED: SALINE FLUSH 10 ML DISP.SYRIN IVF ONE (14:00)
[2017-12-21] MEDS ORDERED: 0.9 % SODIUM CHLORIDE 100 ML IV.SOLN IV ONE (14:00)
== END 2017-12-21 13:11 ==
LOC: LAB 13:10
PROVIDERS: ATTEND Nurse Practitioner
DX: N39.0 Urinary tract infection, site not specified (principal); K90.9 Intestinal malabsorption, unspecified
CPT/HCPCS: J0696; J1642; J2405; 96365

== ENCOUNTER 2017-12-22 14:23 | Outpatient (CLI) | payer OTHER ==
[~2017-12-22 14:23] MED LIST changes: -0.9 % SODIUM CHLORIDE 250 ML IV ONE; +0.9 % SODIUM CHLORIDE 50 ML IV.SOLN IV ONE; +HEPARIN SODIUM 500 UNIT/5 ML DISP.SYRIN IV ONE; +SALINE FLUSH 10 ML DISP.SYRIN IVF ONE
[2017-12-22] MEDS ORDERED: cefTRIAXone SODIUM 1 GM VIAL ONE (14:31)
[2017-12-22] MEDS ORDERED: ONDANSETRON HCL/PF 4 MG/ 2ML VIAL ONE (14:31)
[2017-12-22] MEDS ORDERED: HEPARIN SODIUM 500 UNIT/5 ML DISP.SYRIN IV ONE (14:33)
== END 2017-12-22 14:24 ==
LOC: INF 14:23
PROVIDERS: ATTEND Nurse Practitioner
DX: N39.0 Urinary tract infection, site not specified (principal); K90.9 Intestinal malabsorption, unspecified
CPT/HCPCS: J0696; J1642; J2405; 96365

== ENCOUNTER 2017-12-23 12:53 | Outpatient (CLI) | payer OTHER ==
[2017-12-23] MEDS ORDERED: ONDANSETRON HCL/PF 4 MG/ 2ML VIAL ONE ×2 (12:59→13:00)
[2017-12-23] MEDS ORDERED: HEPARIN SODIUM 500 UNIT/5 ML DISP.SYRIN IV ONE ×2 (12:59→13:00)
[2017-12-23] MEDS ORDERED: SALINE FLUSH 10 ML DISP.SYRIN IVF ONE (13:00)
[2017-12-23] MEDS ORDERED: cefTRIAXone SODIUM 1 GM VIAL ONE (13:00)
[2017-12-23] MEDS ORDERED: 0.9 % SODIUM CHLORIDE 100 ML IV.SOLN IV ONE (13:00)
[2017-12-24] MEDS ORDERED: ONDANSETRON HCL/PF 4 MG/ 2ML VIAL ONE (14:01)
[2017-12-24] MEDS ORDERED: cefTRIAXone SODIUM 1 GM VIAL ONE (14:01)
[2017-12-24] MEDS ORDERED: HEPARIN SODIUM 500 UNIT/5 ML DISP.SYRIN IV ONE (14:03)
== END 2017-12-23 12:55 ==
LOC: INF 12:53
PROVIDERS: ATTEND Nurse Practitioner
DX: N39.0 Urinary tract infection, site not specified (principal); K90.9 Intestinal malabsorption, unspecified
CPT/HCPCS: J0696; J1642; J2405; 96365

== ENCOUNTER 2017-12-24 14:03 | Outpatient (CLI) | payer OTHER ==
[~2017-12-24 14:03] MED LIST changes: +0.9 % SODIUM CHLORIDE 100 ML IV.SOLN IV ONE; -0.9 % SODIUM CHLORIDE 50 ML IV.SOLN IV ONE
[2017-12-24] MEDS ORDERED: cefTRIAXone SODIUM 1 GM VIAL ONE (14:07)
[2017-12-25] MEDS ORDERED: HEPARIN SODIUM 500 UNIT/5 ML DISP.SYRIN IV ONE (07:34)
[2017-12-25] MEDS ORDERED: ONDANSETRON HCL/PF 4 MG/ 2ML VIAL ONE (07:34)
[2017-12-25] MEDS ORDERED: SALINE FLUSH 10 ML DISP.SYRIN IVF ONE (07:34)
== END 2017-12-24 14:05 ==
LOC: INF 14:03
PROVIDERS: ATTEND Nurse Practitioner
DX: N39.0 Urinary tract infection, site not specified (principal); K90.9 Intestinal malabsorption, unspecified
CPT/HCPCS: J0696; J1642; J2405; 96365

== ENCOUNTER 2017-12-25 09:11 | Outpatient (CLI) | payer OTHER ==
[2017-12-25] MEDS ORDERED: cefTRIAXone SODIUM 1 GM VIAL ONE ×2 (09:24→09:30)
[2017-12-25] MEDS ORDERED: ONDANSETRON HCL/PF 4 MG/ 2ML VIAL ONE (09:30)
[2017-12-25] MEDS ORDERED: 0.9 % SODIUM CHLORIDE 100 ML IV.SOLN IV ONE (09:30)
[2017-12-25] MEDS ORDERED: HEPARIN SODIUM 500 UNIT/5 ML DISP.SYRIN IV ONE (09:30)
[2017-12-25] MEDS ORDERED: SALINE FLUSH 10 ML DISP.SYRIN IVF ONE (09:30)
== END 2017-12-25 09:12 ==
LOC: INF 09:11
PROVIDERS: ATTEND Nurse Practitioner
DX: N39.0 Urinary tract infection, site not specified (principal); K90.9 Intestinal malabsorption, unspecified
CPT/HCPCS: 96365; J0696; J1642; J2405

== ENCOUNTER 2017-12-26 13:04 | Outpatient (CLI) | payer OTHER | END 2017-12-26 13:05 | LOC: INF 13:04 | PROVIDERS: ATTEND Nurse Practitioner | DX: N39.0 Urinary tract infection, site not specified (principal); K31.84 Gastroparesis | CPT/HCPCS: J0696; J1642; J2405; 96365 ==

== ENCOUNTER 2018-03-17 11:23 | Outpatient (CLI) | payer OTHER | END 2018-03-17 11:25 | LOC: LAB 11:23 | PROVIDERS: ATTEND Internal Medicine Hematology & Oncology | DX: D68.51 Activated protein C resistance (principal) | CPT/HCPCS: 36415; 85610 ==

== ENCOUNTER 2018-03-29 12:24 | Emergency (ER) | payer OTHER ==
[2018-03-29 12:49] VITALS: BP 126/94
--- NOTE | 2018-03-29 12:59 | ED Physician Documentation ---
Female Urogenital Problems - HISTORIAN Historian: patient - HPI Stated Complaint: Burning with Urination Chief Complaint: Female Urogenital Problems Further Comments: yes (42 year old female patient presents with complaints of dysuria. Concerned she may have a UTI. Brought urine sample to ER. Denies fever, denies frequency. Complains of cloudy urine.) - Associated Symptoms Urinary Symptoms: discomfort w/ urination. denies: blood in urine, frequent urination, burning w/ urination, urgency w/ urination, pain w/ urination - ROS CONST: none GI/: denies: nausea, vomiting, diarrhea CVS/RESP: none EYES/ENT: none NEURO/PSYCH: none MS/SKIN/LYMPH: none - PAST HX Past History: other (gastroparesis; UTIs, hypothyroid, Factor V Lieden mutation) Allergies/Adverse Reactions: Allergies Allergy/AdvReac Type Severity Reaction Status Date / Time benzoyl peroxide Allergy Verified 12/23/17 14:17 Iodinated Contrast- Oral and Allergy Verified 12/23/17 14:17 IV Dye Penicillins Allergy Verified 12/23/17 14:17 sulfamethoxazole Allergy Verified 12/23/17 14:17 [From Bactrim DS] trimethoprim Allergy Verified 12/23/17 14:17 [From Bactrim DS] Home Medications: Ambulatory Orders Medication Instructions Recorded Warfarin Sodium [Coumadin] 6 mg PO DAILY 11/26/12 Hydrocodone/Acetaminophen [Vicodin 1 each PO PRN PRN u2 12/14/15 Es 7.5-300 Mg Tablet] Hyoscyamine Sulfate [Levsin] 0.125 mg PO QID 10/15/17 LORazepam [Ativan] 0.5 mg PO BID PRN 10/15/17 Prochlorperazine Maleate 10 mg PO PRN PRN 10/15/17 [Compazine] Butalb/Acetaminophen/Caffeine 12/20/17 [Esgic] Levothyroxine Sodium [Synthroid] 25 mcg PO 0700 12/20/17 Tramadol HCl [Ultram] 12/20/17 - SOCIAL HX Smoking History: non-smoker - FAMILY HX Family History: denies: none - VITAL SIGNS Vital Signs: Vital Signs Temp Pulse Resp BP Pulse Ox 97.5 F L 95 H 18 126/94 98 03/29/18 12:25 03/29/18 12:25 03/29/18 12:25 03/29/18 12:25 03/29/18 12:25 - REVIEWED ASSESSMENTS Nursing Assessment Reviewed: Yes Vitals Reviewed: Yes ED Results Lab/Radiology - Orders Orders: ED Orders Category Date Time Status In & Out Catheter [Urinary catheterization] 1T Care 03/29/18 12:28 Active UA W/MICRO IF INDICATED Stat Lab 03/29/18 12:29 Ordered Female Urogenital Problems - EXAM General Appearance: no acute distress, alert Respiratory: no resp. distress, breath sounds nml CVS: reg rate & rhythm, heart sounds normal, equal pulses, no murmur, no gallop, PMI nml, no JVD, no friction rub, 24 Abdomen: soft, non-tender, no organomegaly, no distention, nml bowel sounds Skin: color nml, no rash, warm,dry Neuro: oriented X3, CN's nml as tested, motor nml, sensation nml, mood/affect nml Discharge Clincal Impression: Dysuria Referrals: Adriel Alberts MD [Primary Care Provider] - 2 Days Additional Instructions: Increase your water intake to at least 64 oz daily Use your pyridium as prescribed. Follow up with Dr Alberts on Friday. Condition: Stable Disposition: HOME, SELF-CARE Decision to Admit: NO Decision Time: 12:57
[2018-03-29 17:00] LABS: APPEARANCE,URINE CLOUDY (CLEAR); COLOR,URINE YELLOW (YELLOW); OCCULT BLOOD,URINE 1+ (NEGATIVE)
[2018-03-29 17:01] LABS: PH URINE 5.5 (5.0 - 8.0); UROBILINOGEN URINE 0.2 Eu (0.2-1.0)
== END 2018-03-29 13:05 | disposition home or self-care (01) ==
LOC: ED 12:24
DX: R30.0 Dysuria (principal)
CPT/HCPCS: 81002; 87086; 87186

== ENCOUNTER 2018-04-03 11:55 | Outpatient (CLI) | payer OTHER | END 2018-04-03 12:05 | LOC: LAB 11:55 | PROVIDERS: ATTEND Internal Medicine Hematology & Oncology | DX: D68.51 Activated protein C resistance (principal) | CPT/HCPCS: 36415; 85610 ==

== ENCOUNTER 2018-04-10 14:20 | Outpatient (CLI) | payer OTHER ==
[2018-04-10 15:41] LABS: APPEARANCE,URINE CLEAR (CLEAR); COLOR,URINE ORANGE (YELLOW)
[2018-04-10 15:42] LABS: OCCULT BLOOD,URINE NEGATIVE (NEGATIVE); UROBILINOGEN URINE 0.2 Eu (0.2-1.0)
== END 2018-04-10 14:21 ==
LOC: LAB 14:20
PROVIDERS: ATTEND Family Medicine
DX: N39.0 Urinary tract infection, site not specified (principal)
CPT/HCPCS: 81002; 87086

== ENCOUNTER 2018-06-03 10:49 | Outpatient (CLI) | payer OTHER, MEDICAID ==
[2018-06-03 12:09] LABS: eGFR (Non-African) > 60
== END 2018-06-03 10:50 ==
LOC: LAB 10:49
PROVIDERS: ATTEND Physician Assistant
DX: Z00.00 Encounter for general adult medical examination without abnormal findings (principal); Z13.6 Encounter for screening for cardiovascular disorders; E03.9 Hypothyroidism, unspecified; E55.9 Vitamin D deficiency, unspecified
CPT/HCPCS: 80053; 80061; 82652; 84439; 84443; 84481

== ENCOUNTER 2018-06-22 12:23 | Outpatient (CLI) | payer OTHER, MEDICAID | END 2018-06-22 12:24 | LOC: LAB 12:23 | PROVIDERS: ATTEND Internal Medicine Hematology & Oncology | DX: D68.51 Activated protein C resistance (principal) | CPT/HCPCS: 36415; 85610 ==

== ENCOUNTER 2018-07-27 13:51 | Outpatient (CLI) | payer OTHER, MEDICAID | END 2018-07-27 13:53 | LOC: LABRHC 13:51 | PROVIDERS: ATTEND Nurse Practitioner Family | DX: N39.0 Urinary tract infection, site not specified (principal); B95.61 Methicillin susceptible Staphylococcus aureus infection as the cause of diseases classified elsewhere; Z16.11 Resistance to penicillins | CPT/HCPCS: 87086; 87186 ==

== ENCOUNTER 2019-01-26 11:40 | Emergency (ER) | payer OTHER ==
[2019-01-26 12:12] VITALS: BP 136/103
--- NOTE | 2019-01-26 12:18 | ED Physician Documentation ---
Female Urogenital Problems - HISTORIAN Historian: patient - HPI Stated Complaint: S/s UTI Chief Complaint: Female Urogenital Problems Additional Information: Patient is a 43-year-old female who presents to the ER with c/o urinary f requency/urgency that started a couple of days ago. Denies any f/c/n/v/d. She has a significant hx of UTI's. Onset: days ago Severity: mild Location of Pain: other (pubis burning with urination) Further Comments: no - Associated Symptoms Urinary Symptoms: frequent urination, burning w/ urination Discharge: denies: vaginal discharge - ROS CONST: none GI/: denies: nausea, vomiting CVS/RESP: none EYES/ENT: none NEURO/PSYCH: none MS/SKIN/LYMPH: none - PAST HX Past History: none Other History: bladder infection, hypertension, other (IBS, hypothyroid, fibromyalgia) Surgeries/Procedures: other (port a cath) Immunizations: UTD Allergies/Adverse Reactions: Allergies Allergy/AdvReac Type Severity Reaction Status Date / Time benzoyl peroxide Allergy Verified 01/26/19 12:06 Iodinated Contrast- Oral and Allergy Verified 01/26/19 12:06 IV Dye Penicillins Allergy Verified 01/26/19 12:06 sulfamethoxazole Allergy Verified 01/26/19 12:06 [From Bactrim DS] trimethoprim Allergy Verified 01/26/19 12:06 [From Bactrim DS] Home Medications: Ambulatory Orders Medication Instructions Recorded Warfarin Sodium [Coumadin] 6 mg PO DAILY 11/26/12 Hydrocodone/Acetaminophen [Vicodin 1 each PO PRN PRN u2 12/14/15 Es 7.5-300 Mg Tablet] Butalb/Acetaminophen/Caffeine 1 tab PO PRN PRN 12/20/17 [Esgic] Nitrofurantoin Monohyd/M-Cryst 100 mg PO BID #20 capsule 01/26/19 [Macrobid 100 mg Capsule] - SOCIAL HX Smoking History: cigarettes (1-2) Alcohol Use: none Drug Use: none - FAMILY HX Family History: none - VITAL SIGNS Vital Signs: Vital Signs Temp Pulse Resp BP Pulse Ox 98.2 F 111 H 16 136/103 98 01/26/19 11:43 01/26/19 11:43 01/26/19 11:43 01/26/19 11:43 01/26/19 11:43 - REVIEWED ASSESSMENTS Nursing Assessment Reviewed: Yes Vitals Reviewed: Yes Female Urogenital Problems - EXAM General Appearance: no acute distress, alert EENT: eye inspection normal, ENT inspection normal, CHING Neck: nml inspection Respiratory: breath sounds nml CVS: heart sounds normal Abdomen: soft, non-tender Back: non-tender Skin: color nml, no rash, warm,dry Extremities: non-tender, normal range of motion Neuro: oriented X3, CN's nml as tested, motor nml, sensation nml, mood/affect nml Discharge Clincal Impression: UTI (urinary tract infection) Prescriptions: Nitrofurantoin Monohyd/M-Cryst [Macrobid 100 mg Capsule] 100 mg PO BID #20 capsule Referrals: Adriel Alberts MD [Primary Care Provider] - 2 Days Additional Instructions: Continue to drink plenty of fluids Macrobid 100mg 1 cap by mouth twice a day for 10 days Follow up with PCP as needed Condition: Good Disposition: 01 HOME, SELF-CARE Decision to Admit: NO Decision Time: 13:10
[2019-01-26 13:27] LABS: APPEARANCE,URINE CLEAR (CLEAR); COLOR,URINE YELLOW (YELLOW); OCCULT BLOOD,URINE TRACE-LYSED (NEGATIVE); UROBILINOGEN URINE 0.2 Eu (0.2-1.0)
== END 2019-01-26 12:22 | disposition home or self-care (01) ==
LOC: ED 11:40
DX: N39.0 Urinary tract infection, site not specified (principal)
CPT/HCPCS: 81002; 87086; 99282; 99283

== ENCOUNTER 2019-04-01 12:17 | Outpatient (CLI) | payer OTHER, MEDICAID ==
[2019-04-01] MEDS ORDERED: 0.9 % SODIUM CHLORIDE 1,000 ML IV ONE (13:00)
[2019-04-01] MEDS ORDERED: KETOROLAC TROMETHAMINE 30 MG/1ML VIAL IV ONE (13:00)
[2019-04-01] MEDS ORDERED: HEPARIN SODIUM 500 UNIT/5 ML DISP.SYRIN IV ONE (14:09)
== END 2019-04-01 14:30 | disposition home or self-care (01) ==
LOC: INF 12:17
PROVIDERS: ATTEND Nurse Practitioner Family
DX: N20.0 Calculus of kidney (principal); R31.9 Hematuria, unspecified
CPT/HCPCS: 87086; 87186; J1642; J1885; J7030

== ENCOUNTER 2019-07-07 15:26 | Outpatient (CLI) | payer OTHER | END 2019-07-08 15:26 | LOC: LABRHC 15:26 | PROVIDERS: ATTEND Family Medicine | DX: N30.90 Cystitis, unspecified without hematuria (principal) | CPT/HCPCS: 87086; 87186 ==

== ENCOUNTER 2019-07-30 10:26 | Outpatient (CLI) | payer OTHER | END 2019-07-30 11:00 | disposition home or self-care (01) | LOC: OUT 10:26 | PROVIDERS: ATTEND Family Medicine | DX: E53.8 Deficiency of other specified B group vitamins (principal); E72.12 Methylenetetrahydrofolate reductase deficiency; E03.9 Hypothyroidism, unspecified; Z45.2 Encounter for adjustment and management of vascular access device | CPT/HCPCS: 82607; 84443; 85610 ==